=== PATIENT | female | born 1965 | race Caucasian/White ===

== ENCOUNTER → 2021-02-05 | Day surgery (SDC) | payer OTHER ==
[~2021-02-05] MED LIST: DIAZEPAM10 MG PO; KLONOPIN1 MG PO; LAMOTRIGINE ER100 MG PO; MIRALAX17 GM PO; NAPROSYN500 MG PO; NORCO 7.5-3251 EACH PO; PRISTIQ ER100 MG PO; TOPAMAX100 MG PO; VALTREX 500 MG500 MG PO
== END | disposition home or self-care (01) ==
LOC: OR 06:02
PROVIDERS: Surgery
PROC: 0DJD8ZZ Inspection of Lower Intestinal Tract, Via Natural or Artificial Opening Endoscopic (ICD-10-PCS; principal; 2021-02-05 07:30)
DX: Z12.11 Encounter for screening for malignant neoplasm of colon (principal); E78.5 Hyperlipidemia, unspecified; F17.210 Nicotine dependence, cigarettes, uncomplicated; M51.27 Other intervertebral disc displacement, lumbosacral region; M19.90 Unspecified osteoarthritis, unspecified site; E66.9 Obesity, unspecified; Z68.31 Body mass index [BMI] 31.0-31.9, adult; Z79.899 Other long term (current) drug therapy
CPT/HCPCS: J2001; J2704; J7030

== ENCOUNTER 2021-07-12 11:58 | Inpatient (IN) | payer OTHER ==
[~2021-07-12] VITALS: Ht 170.2 cm; Wt 101.7 kg
[~2021-07-12 11:58] MED LIST changes: +MEDROL DOSEPAK 24 MG PO
[2021-07-12 12:49] LABS: HEMOGLOBIN 12.6 gm/dl (12.3-15.3); RED BLOOD COUNT 4.43 M/UL (4.00-5.10); WHITE BLOOD COUNT 6.8 K/UL (4.5-11.0)
[2021-07-12 13:34] LABS: BUN/CREATININE RATIO 16 (0-10)
[2021-07-12] MEDS ORDERED: ACETAMINOPHEN325 MG PO (15:31)
[2021-07-12] MEDS ORDERED: NEXIUM40 MG PO (15:32)
[2021-07-12] MEDS ORDERED: PROAIR HFA8.5 GM INH (15:32)
[2021-07-12] MEDS ORDERED: IBU800 MG PO (15:32)
[2021-07-12] MEDS ORDERED: CRESTOR5 MG PO (15:33)
[2021-07-13 07:44] LABS: HEMOGLOBIN 10.8 gm/dl (12.3-15.3); WHITE BLOOD COUNT 6.9 K/UL (4.5-11.0)
[2021-07-13 07:56] LABS: RED BLOOD COUNT 3.81 M/UL (4.00-5.10)
[2021-07-13 08:34] LABS: BUN/CREATININE RATIO 21 (0-10)
[2021-07-14 08:00] LABS: HEMOGLOBIN 11.7 gm/dl (12.3-15.3); RED BLOOD COUNT 4.16 M/UL (4.00-5.10); WHITE BLOOD COUNT 8.5 K/UL (4.5-11.0)
[2021-07-14 08:18] LABS: BUN/CREATININE RATIO 21 (0-10)
[2021-07-15 05:30] LABS: HEMOGLOBIN 11.9 gm/dl (12.3-15.3); RED BLOOD COUNT 4.25 M/UL (4.00-5.10)
[2021-07-15 05:44] LABS: WHITE BLOOD COUNT 12.2 K/UL (4.5-11.0)
[2021-07-15 06:01] LABS: BUN/CREATININE RATIO 29 (0-10)
[2021-07-16 07:18] LABS: HEMOGLOBIN 12.9 gm/dl (12.3-15.3); RED BLOOD COUNT 4.63 M/UL (4.00-5.10)
[2021-07-16 07:19] LABS: WHITE BLOOD COUNT 24.5 K/UL (4.5-11.0)
[2021-07-16 11:09] LABS: ANTI-DSDNA ANTIBODIES <1 IU/mL (0-9)
[2021-07-16 16:10] LABS: ANTIMYELOPEROXIDASE (MPO) ABS <9.0 U/mL (0.0-9.0); ANTIPROTEINASE 3 (PR-3) ABS <3.5 U/mL (0.0-3.5); ATYPICAL PANCA <1:20 titer (Neg:<1:20); CYTOPLASMIC (C-ANCA) <1:20 titer (Neg:<1:20); PERINUCLEAR (P-ANCA) <1:20 titer (Neg:<1:20)
[2021-07-17 07:09] LABS: RED BLOOD COUNT 4.31 M/UL (4.00-5.10); WHITE BLOOD COUNT 27.7 K/UL (4.5-11.0)
[2021-07-17 18:04] LABS: HEMOGLOBIN 11.4 gm/dl (12.3-15.3); RED BLOOD COUNT 4.01 M/UL (4.00-5.10); WHITE BLOOD COUNT 26.9 K/UL (4.5-11.0)
[2021-07-18 05:59] LABS: HEMOGLOBIN 11.1 gm/dl (12.3-15.3); RED BLOOD COUNT 3.95 M/UL (4.00-5.10); WHITE BLOOD COUNT 26.5 K/UL (4.5-11.0)
[2021-07-18 19:08] LABS: HEPARIN INDUCED PLATELET AB 0.094 OD (0.000-0.400)
[2021-07-19 05:11] LABS: HEMOGLOBIN 9.6 gm/dl (12.3-15.3); WHITE BLOOD COUNT 24.6 K/UL (4.5-11.0)
[2021-07-19 06:19] LABS: RED BLOOD COUNT 3.37 M/UL (4.00-5.10)
[2021-07-20 05:50] LABS: HEMOGLOBIN 8.6 gm/dl (12.3-15.3); RED BLOOD COUNT 3.1 M/UL (4.00-5.10); WHITE BLOOD COUNT 26.3 K/UL (4.5-11.0)
[2021-07-20 14:20] LABS: HEMOGLOBIN 7.8 gm/dl (12.3-15.3)
[2021-07-20 23:04] LABS: HEMOGLOBIN 9.1 gm/dl (12.3-15.3)
[2021-07-21 05:42] LABS: HEMOGLOBIN 8.5 gm/dl (12.3-15.3); RED BLOOD COUNT 2.95 M/UL (4.00-5.10)
[2021-07-22 07:46] LABS: HEMOGLOBIN 8.3 gm/dl (12.3-15.3); RED BLOOD COUNT 2.79 M/UL (4.00-5.10); WHITE BLOOD COUNT 21.5 K/UL (4.5-11.0)
[2021-07-23 05:51] LABS: HEMOGLOBIN 7.3 gm/dl (12.3-15.3); RED BLOOD COUNT 2.57 M/UL (4.00-5.10); WHITE BLOOD COUNT 22.4 K/UL (4.5-11.0)
[2021-07-24 05:09] LABS: HBSAG SCREEN Negative (Negative); HEP A AB, IGM Negative (Negative); HEP B CORE AB, IGM Negative (Negative); HEP C VIRUS AB <0.1 (0.0-0.9)
[2021-07-24 05:38] LABS: HEMOGLOBIN 8.5 gm/dl (12.3-15.3)
[2021-07-24 05:39] LABS: RED BLOOD COUNT 2.93 M/UL (4.00-5.10); WHITE BLOOD COUNT 28.5 K/UL (4.5-11.0)
[2021-07-25 05:07] LABS: RED BLOOD COUNT 3.1 M/UL (4.00-5.10)
[2021-07-25 05:11] LABS: WHITE BLOOD COUNT 33.8 K/UL (4.5-11.0)
--- NOTE | 2021-07-25 21:09 | NUR ---
1855 INITIAL ASSESMENT COMPLETED. PT ABSENT FOR COUGH AND GAG REFLEX, PT NOT REACTIVE TO PAINFUL STIMULI, PT PUPILS EQUAL BUT NONREACTIVE. PER PREVIOUS ASSESSMENTS PT HAS BEEN ABSENT OF ALL REFLEXES. FENTANYL AND PRECEDEX STOPPED @ 1900. DR HARMAN NOTIFIED AT 192. AT BEDSIDE @ 1940. ORDERS RECEIVED FOR ROMAZICON AND NARCAN IVP. SEE MAR. NO NEURO REACTION FROM PT. ORDERS RECEIVED FOR HEAD CT.
[2021-07-26 05:00] LABS: HEMOGLOBIN 8.9 gm/dl (12.3-15.3); RED BLOOD COUNT 3.06 M/UL (4.00-5.10); WHITE BLOOD COUNT 29.5 K/UL (4.5-11.0)
[2021-07-27 00:19] LABS: HEMOGLOBIN 8.8 gm/dl (12.3-15.3); RED BLOOD COUNT 3.02 M/UL (4.00-5.10)
[2021-07-27 00:20] LABS: WHITE BLOOD COUNT 21.4 K/UL (4.5-11.0)
--- NOTE | 2021-07-27 00:43 | NUR ---
07/26 2245 UNABLE TO OBTAIN O2 SAT, RN BEGAN USING BVM. RT CALLED TO BEDSIDE. STILL UNABLE TO OBTAIN O2 SAT. DIFFICULTY OBTAINING BP, 64/38. RT ATTEMPTED MULTIPLE STICKS FOR ABG, UNABLE TO OBTAIN. CALLED TO BEDSIDE. SEE CODE SHEET FOR COMPLETE DOCUMENTATION. TOD 0009 07/27/2021. UPDATED PT FAMILY VIA PHONE. 07/27 35 BROTHER AT BEDSIDE. REPORTS HOME IS [facility]. HOME NOTIFIED. 07/27 41 CALLED AND GAVE UPDATE TO KATIE. NATALI LA REPORTS OKAY TO RELEASE PT. REFERRAL # [id number].
== END 2021-07-27 11:19 | disposition expired | DRG 870 ==
LOC: ER1 11:58 → CDU 15:18 → CCU 15:18 → M/S 22:36 → CCU 07-14 14:36
PROVIDERS: Internal Medicine; Internal Medicine Hematology & Oncology; Internal Medicine Nephrology; Internal Medicine Pulmonary Disease; Nurse Practitioner Family; Physician Assistant; Physician Assistant Medical; ADMIT Internal Medicine
PROC: 8E0ZXY6 Isolation (ICD-10-PCS; principal; 2021-07-12)
PROC: XW033E5 Introduction of Remdesivir Anti-infective into Peripheral Vein, Percutaneous Approach, New Technology Group 5 (ICD-10-PCS; 2021-07-12)
PROC: 3E0333Z Introduction of Anti-inflammatory into Peripheral Vein, Percutaneous Approach (ICD-10-PCS; 2021-07-12)
PROC: 3E033XZ Introduction of Vasopressor into Peripheral Vein, Percutaneous Approach (ICD-10-PCS; 2021-07-12)
PROC: 5A1955Z Respiratory Ventilation, Greater than 96 Consecutive Hours (ICD-10-PCS; 2021-07-16)
PROC: 5A1D90Z Performance of Urinary Filtration, Continuous, Greater than 18 hours Per Day (ICD-10-PCS; 2021-07-16)
PROC: 0BH18EZ Insertion of Endotracheal Airway into Trachea, Via Natural or Artificial Opening Endoscopic (ICD-10-PCS; 2021-07-16)
PROC: 3E02340 Introduction of Influenza Vaccine into Muscle, Percutaneous Approach (ICD-10-PCS; 2021-07-16)
PROC: XW13325 Transfusion of Convalescent Plasma (Nonautologous) into Peripheral Vein, Percutaneous Approach, New Technology Group 5 (ICD-10-PCS; 2021-07-16)
PROC: 02HV33Z Insertion of Infusion Device into Superior Vena Cava, Percutaneous Approach (ICD-10-PCS; 2021-07-16)
DX: A41.89 Other specified sepsis (principal); U07.1 COVID-19; J12.82 Pneumonia due to coronavirus disease 2019; R65.21 Severe sepsis with septic shock; G93.6 Cerebral edema; D65 Disseminated intravascular coagulation [defibrination syndrome]; N18.6 End stage renal disease; J80 Acute respiratory distress syndrome; N17.0 Acute kidney failure with tubular necrosis; J15.9 Unspecified bacterial pneumonia; R04.2 Hemoptysis; I67.89 Other cerebrovascular disease; E87.2 Acidosis; G93.49 Other encephalopathy; K92.2 Gastrointestinal hemorrhage, unspecified; G93.1 Anoxic brain damage, not elsewhere classified; Z66 Do not resuscitate; Z51.5 Encounter for palliative care; D63.1 Anemia in chronic kidney disease; R74.01 Elevation of levels of liver transaminase levels; E87.6 Hypokalemia; K76.0 Fatty (change of) liver, not elsewhere classified; F41.8 Other specified anxiety disorders; Z90.49 Acquired absence of other specified parts of digestive tract; Z98.51 Tubal ligation status; Z83.3 Family history of diabetes mellitus; Z90.710 Acquired absence of both cervix and uterus; Z87.891 Personal history of nicotine dependence; Z99.2 Dependence on renal dialysis; Z23 Encounter for immunization
CPT/HCPCS: ECHO; 36415; 36430; 36600; 70450; 71045; 74018; 76700; 80048; 80053; 80074; 80076; 80202; 81001; 82550; 82553; 82728; 82803; 83520; 83605; 83615; 83735; 83874; 84100; 84132; 84484; 84597; 85007; 85014; 85018; 85025; 85027; 85379; 85384; 85610; 85652; 85730; 86021; 86038; 86140; 86225; 86256; 86850; 86900; 86901; 86920; 86927; 87040; 87070; 87081; 87205; 90935; 90937; 92950; 93005; 93306; 94002; 94003; 94640; 94660; 94664; 94760; 96374; 96375; 99285; C1751; C9113; J0171; J0282; J0456; J0461; J0610; J0696; J1100; J1650; J1940; J2001; J2060; J2185; J2250; J2310; J2405; J2704; J2765; J3010; J3370; J3475; J7030; J7040; J7050; J7070; P9016; P9047; Q0249; Q9967; U0002